=== PATIENT | female | born 1945 | race Caucasian/White ===

== ENCOUNTER 2018-04-19 07:55 | Inpatient (IN) | payer MEDICARE, BC ==
[~2018-04-19 07:55] MED LIST: CEFAZOLIN 1 GM INJ; DEXAMETHASONE 4 MG/ML 1 ML INJ; FENTAnyl 50 MCG/ML VIAL; GLYCOPYRROLATE 0.4 MG INJ; MIDAZOLAM 1 MG/ML 2 ML INJ; NEOSTIGMINE 3 MG/3 ML SYRINGE; ONDANSETRON 4 MG INJ; PROPOFOL 20 ML; ROCURONIUM 50 MG INJ
[2018-04-19] MEDS: D5W-0.45 NACL + KCL 20 MEQ 1,000 ML IV ×2 (08:48→18:48)
[2018-04-19] MEDS ORDERED: CEPASTAT LOZENGE MT (09:00)
[2018-04-19] MEDS ORDERED: DIPHENHYDRAMINE 50 MG INJ IV (09:00)
[2018-04-19] MEDS ORDERED: ONDANSETRON 4 MG INJ IV (09:00)
[2018-04-19] MEDS ORDERED: NALOXONE (0.4 MG/ML) INJ IV (09:00)
[2018-04-19] MEDS ORDERED: ACETAMINOPHEN 325 MG TAB PO (09:00)
[2018-04-19] MEDS ORDERED: AL HYDROX/MG HYDROX/SIMETH 30 ML CUP PO (09:00)
[2018-04-19] MEDS ORDERED: BISACODYL 10 MG SUPP PR (09:00)
[2018-04-19] MEDS ORDERED: CA CHLORIDE 10% 10 ML SYRINGE (09:36)
[2018-04-19] MEDS: BUPIVACAINE 0.5%/EPI (SDV) 30 ML INJ (09:59)
[2018-04-19] MEDS: POLYMYXIN/BACITRACIN 1L IRRIG (10:02)
[2018-04-19] MEDS: SURGIFOAM POWDER 1 GM KIT (10:06)
[2018-04-19] MEDS: HEPARIN 1000 UNITS/ML 10 ML INJ (10:06)
[2018-04-19] MEDS: THROMBIN 5000 UNIT VIAL (10:07)
[2018-04-19] MEDS ORDERED: SUGAMMADEX SODIUM 200 MG/2 ML VIAL IV (10:52)
[2018-04-19] MEDS: HYDROmorphONE 0.2 MG/ML PCA IV (11:24)
[2018-04-19] MEDS: DOCUSATE SODIUM 100 MG CAP PO ×2 (11:27→20:49)
[2018-04-19] MEDS: CEFAZOLIN 1 GM/50 ML (PMX) 50 ML IVPB ×2 (11:28→18:42)
[2018-04-19] MEDS: HYDROCODONE/APAP (7.5/325) TAB PO ×2 (18:42→20:51)
[2018-04-19] MEDS: ATORVASTATIN 40 MG TAB PO (20:49)
[2018-04-19] MEDS: FLECAINIDE 50 MG TAB PO (20:49)
[2018-04-19] MEDS: ZOLPIDEM 5 MG TAB PO (20:50)
[2018-04-19] MEDS: METOPROLOL (XL) 50 MG TAB PO (20:50)
[2018-04-20] MEDS: CEFAZOLIN 1 GM/50 ML (PMX) 50 ML IVPB (00:31)
[2018-04-20] MEDS: HYDROCODONE/APAP (7.5/325) TAB PO ×3 (01:09→10:08)
[2018-04-20] MEDS: D5W-0.45 NACL + KCL 20 MEQ 1,000 ML IV (04:48)
[2018-04-20] MEDS: PANTOPRAZOLE (EC) 40 MG TAB PO (05:17)
[2018-04-20 05:54] LABS: ADD MAN DIFF? NO
[2018-04-20 05:57] LABS: BASOPHILS % 0.2 % (0.0-2.0); HEMATOCRIT 33.3 % (37.0-47.0); HEMOGLOBIN 11.5 g/dl (12.0-16.0); LYMPHOCYTES # 1.6 10^3/ul (0.8-2.9); LYMPHOCYTES % 13.4 % (15.0-51.0); MEAN CORPUSCULAR HEMOGLOBIN 31.4 pg (29.0-33.0); MEAN CORPUSCULAR HGB CONC 34.5 g/dl (32.0-37.0); MEAN PLATELET VOLUME 9.7 fl (7.4-10.4); MONOCYTE # 0.8 10^3/ul (0.3-0.9); MONOCYTES % 6.7 % (0.0-11.0); NEUTROPHIL # 9.4 10^3/ul (1.6-7.5); NEUTROPHILS % 79.4 % (39.0-77.0); PLATELET COUNT 229 10^3/UL (140-415); RED BLOOD COUNT 3.66 10^6/ul (4.20-5.40); RED CELL DISTRIBUTION WIDTH 12.9 % (11.5-14.5)
[2018-04-20 05:57] LABS: WHITE BLOOD COUNT 11.9 10^3/ul (4.8-10.8)
[2018-04-20 06:30] LABS: ANION GAP 11 (8-16); BLOOD UREA NITROGEN 10 mg/dl (7-20); CALCIUM 8.8 mg/dl (8.4-10.2); CARBON DIOXIDE 26 mmol/L (21-31); CHLORIDE 111 mmol/L (97-110); CREATININE 0.67 mg/dl (0.44-1.00); GLUCOSE 116 mg/dl (70-220); POTASSIUM 3.8 mmol/L (3.5-5.1); SODIUM 144 mmol/L (135-144)
[2018-04-20] MEDS: MULTIVITAMINS THERAPEUTIC TAB PO (09:01)
[2018-04-20] MEDS: LORATADINE 10 MG TAB PO (09:01)
[2018-04-20] MEDS: DOCUSATE SODIUM 100 MG CAP PO (09:01)
[2018-04-20] MEDS: CALCIUM/VITAMIN D (500/200) TAB PO (09:02)
[2018-04-20] MEDS: FLECAINIDE 50 MG TAB PO (09:04)
[2018-04-20] MEDS: METOPROLOL (XL) 50 MG TAB PO (09:05)
[2018-04-20] MEDS ORDERED: HYDROCODONE/APAP (7.5/325) TAB PO ×2 (09:30)
[2018-04-20] MEDS: CYCLOBENZAPRINE 10 MG TAB PO (12:35)
[2018-04-20] MEDS: HYDROmorphONE 0.5 MG/0.5 ML SYG IV (13:19)
== END 2018-04-20 14:15 | disposition home or self-care (01) | DRG 30 ==
LOC: REC 07:55 → MS1 11:33
PROC: 00BY0ZZ Excision of Lumbar Spinal Cord, Open Approach (ICD-10-PCS; principal; 2018-04-19 09:19)
DX: G96.19 Other disorders of meninges, not elsewhere classified (principal); M48.061 Spinal stenosis, lumbar region without neurogenic claudication; M54.16 Radiculopathy, lumbar region
CPT/HCPCS: 72020; 80048; 83735; 85025; 86999; 88305; 97116; 97162